=== PATIENT | male | born 1990 | race Caucasian/White ===

== ENCOUNTER 2017-04-21 13:04 | Day surgery (SDC) | payer OTHER ==
--- NOTE | 2017-04-20 15:11 | HP ---
PREOPERATIVE HISTORY AND PHYSICAL: DATE OF SURGERY: 04/21/17 DARE OF OFFICE VISIT: 04/20/17 ATTENDING SURGEON: Alejo High MD * (DICTATED BY BRENT BHATT) PROCEDURE: Right knee open patellar tendon repair. CHIEF COMPLAINT: Right knee pain. HISTORY OF PRESENT ILLNESS: Steve is a 26-year-old male who was playing [employer] football game on 04/17/17. He went to jump and he felt he heard a pop in his knee and it suddenly gave out. He had immediate pain and swelling. His patella moved superiorly and laterally. He was seen by the [employer] training group who preformed x-rays and gave him a brace. He has been nonweightbearing while keeping his knee straight with use of crutches since the injury. He reports no prior injury to the knee. He is taking ibuprofen as needed for the pain. The pain is worse with weightbearing and straightening the knee. He denies numbness, tingling, fever, chills, and is doing well otherwise. He has failed conservative measures and therefore agreed to undergo right knee open patellar tendon repair with Dr. High on 04/21/17. PAST MEDICAL HISTORY: No current problems. PAST SURGICAL HISTORY: Left shoulder labral repair. MEDICATIONS: None for medications. ALLERGIES: No known drug allergies. FAMILY HISTORY: Denies pertinent problems. SOCIAL HISTORY: He lives with his girlfriend. 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 He denies tobacco use. He reports occasional alcohol consumption. He exercises regularly. He is right-hand dominant. REVIEW OF SYSTEMS: A 14-point review of systems was reviewed with the patient. Positive for current complaint, otherwise negative. PHYSICAL EXAMINATION GENERAL: Well-developed, well-nourished 26-year-old male, in no acute distress. Alert and oriented x3. Appropriate mood and affect. VITAL SIGNS: Height 72, weight 190. Pulse 56, blood pressure 105/68, respiratory rate 14, temperature 97.9. BMI 25.8. HEENT: Normocephalic, atraumatic. PERRLA. Throat clear. NECK: Supple. PULMONARY: Lungs clear to auscultation bilaterally. No wheezing, rhonchi, or rales. CARDIAC: Regular rate and rhythm. S1 and S2. No murmurs, gallops, or rubs. No edema. ABDOMEN: Positive bowel sounds, soft, nontender. MUSCULOSKELETAL: Right lower extremity; skin is intact. There is a large effusion. There is bruising over the medial aspect of the knee and the patellar tendon is absent to palpation. He is unable to perform straight leg raise. He has +5/5 strength ankle dorsiflexion or plantar flexion. Calf soft and nontender, +2 posterior tibial pulse, sensation is intact to light touch distally. Left lower extremity seems to intact. No warmth or erythema. Nontender to palpation; full pain free range of motion. +2 dorsalis pedis pulse , sensation is intact to light touch distally. NEUROLOGIC: Alert and oriented x3. Cranial nerves grossly intact. Sensation is intact to light touch. STUDIES: Multiple view x-rays of the right knee revealed superiorly displaced kneecap with a joint effusion consistent with a patellar tendon tear. IMPRESSION: Right knee patellar tendon rupture. PLAN: The patient is scheduled to undergo right knee open patellar tendon repair with Dr. High on 04/21/17. Postoperative course including being weightbearing with brace locked in extension for 6 weeks was discussed with the patient as well as risks of surgery to include infection, numbness, bleeding, injury to blood vessels, nerve surrounding structures, blood clots, scar, stiffness, anesthesia, and persistent pain were discussed with the patient. He would like to undergo surgery. He will follow up in 10 to 14 days postoperative for followup and suture removal. Percocet will be used for postoperative pain management. BRENT BHATT [id number]/[facility] #: [id number] [facility]
[~2017-04-21 13:04] MED LIST: Acetaminophen TAB* 325 MG PO ONE; Buffered Lidocaine 0.9% SYRIN* 5 ML/SYR SYRINGE INTRADERM ONE; Dexamethasone IV* 4 MG/ML 1 ML (4 MG) IV SLOW PU ONE; Metoclopramide IV* 5 MG/ML 2 ML VIAL IV SLOW PU ONE
[2017-04-21] MEDS ORDERED: Metoclopramide IV* 5 MG/ML 2 ML VIAL ONE (13:10)
[2017-04-21] MEDS ORDERED: Dexamethasone IV* 4 MG/ML 1 ML (4 MG) ONE (13:10)
[2017-04-21] MEDS ORDERED: Buffered Lidocaine 0.9% SYRIN* 5 ML/SYR SYRINGE ONE (13:11)
[2017-04-21] MEDS ORDERED: Acetaminophen TAB* 325 MG ONE (13:11)
[2017-04-21] MEDS ORDERED: ceFAZolin 2 GM PREMIX (*) 50 ML IVPB ONE (13:11)
[2017-04-21] MEDS ORDERED: Midazolam* 1 MG/ML 2 ML VIAL (2 MG) ONE (14:31)
[2017-04-21] MEDS ORDERED: fentaNYL* 50 MCG/ML 2 ML VIAL (100 MCG VIAL) ONE ×2 (14:31→16:37)
[2017-04-21] MEDS ORDERED: Propofol* 10 MG/ML 20 ML BTL IV PUSH ONE (14:33)
[2017-04-21] MEDS ORDERED: Lidocaine 2% PF * 5 ML VIAL ONE (14:33)
[2017-04-21] MEDS ORDERED: Phenylephrine IV* 40 MCG/ML 10 ML SYRINGE ONE (15:06)
[2017-04-21] MEDS ORDERED: Bupivacaine 0.25% SDV* 30 ML ONE (16:09)
[2017-04-21] MEDS ORDERED: Ketorolac INJ* 30 MG/ML 1 ML VIAL ONE (16:19)
[2017-04-21] MEDS ORDERED: Ondansetron INJ* 2 MG/ML VIAL ONE (16:19)
[2017-04-21] MEDS ORDERED: DiMENhydriNATE IV* 50 MG/ML VIAL IV PUSH PRN (16:21)
[2017-04-21] MEDS ORDERED: HYDROmorphone INJ* 1 MG/ML CARPUJECT SYRINGE IV PRN (16:21)
[2017-04-21] MEDS ORDERED: fentaNYL* 50 MCG/ML 2 ML VIAL (100 MCG VIAL) IV PRN (16:21)
[2017-04-21] MEDS ORDERED: HYDROmorphone INJ* 1 MG/ML CARPUJECT SYRINGE ONE (17:00)
[2017-04-21] MEDS ORDERED: oxyCODONE/Acetamin 5/325 MG* TAB ONE (18:22)
[2017-04-21 18:59] VITALS: BP 155/72
--- NOTE | 2017-04-25 21:49 | OP ---
CC: [facility] * DATE OF OPERATION: 04/21/17 - [facility] DATE OF : 89 SURGEON: Alejo High MD. METAL COATER OPERATOR: BRENT Escamilla. ANESTHESIOLOGIST: Donna Ghosh MD. ANESTHESIA: General. PRE-OP DIAGNOSIS: Right patellar tendon rupture. POST-OP DIAGNOSIS: Right patellar tendon rupture. OPERATIVE PROCEDURE: Patellar tendon repair. COMPLICATIONS: None. ESTIMATED BLOOD LOSS: Minimal. TOURNIQUET TIME: Zero minutes. IMPLANTS: One [employer] 3.5 mm metal anchor was used and then taken out , although it does lock taking it out; however, it is not prominent. INDICATIONS: Steve Reynoso is a 26-year-old male who was at the [employer] playing football game on 04/17/17 when he jumped and heard a pop in his knee and it gave out. He had immediate pain and swelling. He was diagnosed with a patellar tendon rupture. He then followed up in the office on 04/20/17, and the diagnosis was confirmed and then we planned for surgery. After extensive discussion of risks and benefits of operative versus nonoperative treatment, he has elected with surgery. DESCRIPTION OF PROCEDURE: The patient was greeted in the preoperative area by the attending surgeon. The correct extremity was marked, consent was confirmed. The patient was then brought back to the operating suite where he was placed in a supine position on the operating table. He then underwent general anesthesia and LMA intubation after which an unsterile tourniquet was placed high on the proximal thigh. The right leg was then prepped and draped in the usual sterile fashion beginning with chlorhexidine soap, scrub, and alcohol wipe. After appropriate surgical pause indicating side, site, procedure, and administration of antibiotics, a midline incision over the knee was then made carefully using a 15 blade. The soft tissues were carefully dissected exposing the paratenon, which was then saved for later layer closure then the defect in the patellar tendon, which was evident. The defect was identified and it was completely avulsed off the anterior pole of patella. The soft tissues were carefully dissected and debrided. The bony portion of the inferior pole was also prepared with a rongeur. The inferior pole was then prepared. The tendon was then whipstitched using a #5 Ethibond sutures in a crack out fashion with 2 full stitches to allow for purchase of the majority of the tendon. This helped to reapproximate the tendon. The tendon wall had a good grasp on the tendon. The 3 drill holes were then drilled with a 2-0 drill bed through the patellar tendon with care not to penetrate the chondral surface by direct visualization as well as palpable visualization. The passing sutures were then passed in each of the tunnels. Once all tunnels were drilled, the #5 Ethibond were passed through the tendon and secured on the superior portion. These were then tied down with excellent purchase and helped to restore the Achilles tendon. The joint was thoroughly irrigated both intraarticularly and more superficially. A 0 Vicryl was then used to close the capsule that was torn on the sides. The paratenon was closed with 2-0 Vicryl in a running fashion. At this point, a Cee [employer]hew anchor was then placed inferiorly to allow for supplemental fixation, but it was felt to be too prominent though this was then abandoned as it was being taken out it was broken, but buried underneath the bony surface. The wounds were irrigated again. The incision was closed in layers with 2-0 Vicryl and mando. A 0.25% Marcaine was injected all around the wound and sterile dressings were applied as well as Cryo/Cuff. He was then applied and placed in an IROM brace. He was awoken from anesthesia and transferred to PACU in stable condition. POSTOPERATIVE PLAN: He will be nonweightbearing with the leg left in the brace for approximately 6 weeks and then start working on gradual range of motion and will be discharged on pain medications. I will see the patient back in 10 to 14 days. DVT prophylaxis was considered but deferred due to no previous personal or family history. I will see the patient back in 10 to 14 days. [id number]/[facility] #: [id number] [facility]
== END 2017-04-21 19:00 | disposition home or self-care (01) ==
LOC: OR 13:04
PROVIDERS: ATTEND Orthopaedic Surgery
DX: S76.101A Unspecified injury of right quadriceps muscle, fascia and tendon, initial encounter (principal); W19.XXXA Unspecified fall, initial encounter; Y93.61 Activity, american tackle football; Y92.9 Unspecified place or not applicable; M25.461 Effusion, right knee
CPT/HCPCS: A9270-GY; J0690; J1100; J1170; J1885; J2250; J2405; J2704; J2765; J3010